=== PATIENT | female | born 1980 | race Caucasian/White ===

== ENCOUNTER 2017-10-22 17:11 | Emergency (ER) | payer SELFPAY | END 2017-10-22 18:58 | disposition left against medical advice (07) | LOC: ER 17:11 | DX: Z53.21 Procedure and treatment not carried out due to patient leaving prior to being seen by health care provider (principal) ==

== ENCOUNTER 2017-10-25 14:40 | Emergency (ER) | payer SELFPAY ==
[2017-10-25 14:56] VITALS: BP 159/92; TEMP 98.1; O2SAT 98
[2017-10-25] MEDS ORDERED: PROMETHAZINE HCL 25 MG TAB PO ONE (15:08)
--- NOTE | 2017-10-25 16:11 | CT ---
EXAM DESCRIPTION: Head: Computed Tomography. CLINICAL HISTORY: fall 3 d ago with new right periorbital bruising COMPARISON: CT scan of the orbits without IV contrast on the same visit. TECHNIQUE: Non-helical axial scans through the skull and brain, at 2.5 mm intervals, non-contrast. Coronal and sagittal 2.0 mm reconstructions. Total Exam DLP: 752.48 mGy-cm. This exam was performed according to our departmental dose-optimization program which includes automated exposure control, adjustment of the mA and/or kV according to patient size and/or use of iterative reconstruction technique; to reduce radiation dose to as low as reasonably achievable (ALARA). FINDINGS: No hemorrhage, no mass-effect, and no midline shift. Normal rico-white matter differentiation. No abnormal radiodense material in the brain parenchyma. Vascular calcifications not present; physiologic calcifications in the pineal gland and choroid plexus. No effacement or displacement of the ventricles, CSF spaces, or subdural spaces. No extra axial fluid collection or hemorrhage. No gross abnormalities of the bony calvarium, including some of the facial bones and periorbital structures. Included paranasal sinuses and mastoid air cells are well - aerated. IMPRESSION: 1. No hemorrhage, no mass effect, no midline shift. Normal CT scan of the head without IV contrast. Not all of the orbital structures were included on the scan. Please see report and examination CT orbits. 2. CT scans are insensitive for detecting small CVAs in the first 24 hours after onset. Evaluation of the brain stem is also limited. If symptoms persist, consider MRI scan of the brain with diffusion imaging. Electronically signed by: Cleve Gayle MD 10/25/2017 4:10 PM CDT
--- NOTE | 2017-10-25 16:22 | CT ---
EXAM DESCRIPTION: Orbits: Computed Tomography. CLINICAL HISTORY: fall 3 d ago with new right periorbital bruising COMPARISON: CT scan of the head without IV contrast. TECHNIQUE: Spiral, axial 2.5 mm scans through the orbits and maxillofacial bones without contrast. Coronal and sagittal 2.0 mm reconstructions. Total Exam DLP: 282.65 mGy-cm. This exam was performed according to our departmental CT dose-optimization program which includes automated exposure control, adjustment of the mA and/or kV according to patient size and/or use of iterative reconstruction technique; to reduce radiation dose to as low as reasonably achievable (ALARA). FINDINGS: No significant mucoperiosteal thickening or air-fluid levels in the paranasal sinuses. Tiny polyp or cyst in the anterior base of the left antrum. Moderate anterior left septal deviation and minimal posterior right septal deviation. Carmen bullosa in the right middle turbinate. Bilateral ostiomeatal units are patent. Nasal bones and anterior maxillary spine are intact. The merida of the orbits and the maxillary sinuses are intact. No intraorbital air. No orbital blowout fracture. Bilateral orbital globes symmetric and normal density. No significant perifrontal and periorbital soft tissue swelling minimal soft tissue swelling just above the anterior right zygoma. IMPRESSION: No periorbital or paranasal sinus fracture. No significant soft tissue injury. Carmen bullosa in the right middle turbinate. Moderate left anterior septal deviation. Electronically signed by: Cleve Gayle MD 10/25/2017 4:21 PM CDT
--- NOTE | 2017-10-25 16:29 | ED.PDOC ---
History of Present Illness - General Chief Complaint: Head Injury Stated Complaint: Headache after a fall 3 days ago Time Seen by Provider: 10/25/17 14:49 Source: patient Exam Limitations: no limitations - History of Present Illness Initial Comments: the patient is a 37-year-old female presenting to the emergency room after having fallen 3 days ago while pushing a dumpster. The patient fell and hit the right side of her head and she does have some bruising over the right temporalis muscle and some periorbital hematomas well. There is no impingement of extraocular movements and vision is apparently normal. She did not pass out at that time. She has had some dizziness as well as phonophobia and photophobia since that time. She does have a headache. The symptoms have persisted and not gotten better so she showed appear to the emergency room. No other injuries. Severity: moderate Improving Factors: nothing Worsening Factors: nothing Associated Symptoms: malaise, nausea/vomiting Allergies/Adverse Reactions: Allergies Amoxicillin Allergy (Verified 10/25/17 14:59) Rash Cephalexin [From Keflex] Allergy (Verified 10/25/17 14:59) Rash Penicillins Allergy (Verified 10/25/17 14:59) Rash Homatropine [From Hydrocodone Compound] Adverse Reaction (Verified 10/25/17 14: 59) Other Causes severe itching Hydrocodone [From Hydrocodone Compound] Adverse Reaction (Verified 10/25/17 14: 59) Other Causes severe itching Home Medications: Ambulatory Orders Ondansetron [Zofran Odt] 4 mg PO Q4H PRN #10 tab 10/25/17 Review of Systems - Review of Systems Constitutional: States: malaise EENTM: States: no symptoms reported Respiratory: States: no symptoms reported Cardiology: States: no symptoms reported Gastrointestinal/Abdominal: States: no symptoms reported Genitourinary: States: no symptoms reported Musculoskeletal: States: no symptoms reported Skin: States: no symptoms reported Neurological: States: headache Endocrine: States: no symptoms reported All other Systems: No Change from Baseline Past Medical History (General) - Patient Medical History Hx Stroke: No Hx Congestive Heart Failure: No Hx Diabetes: No Surgical History: no surgical history - Vaccination History Hx Influenza Vaccination: No Hx Pneumococcal Vaccination: No - Social History Hx Tobacco Use: Yes - Female History Patient is a Female of Child Bearing Age (10 -59 yrs old): Yes Patient : No Family Medical History - Family History Mother Family History: No Known Living Status: Still Living Hx Family;Other: Grandmother, paternal and maternal - lung cancer Physical Exam - Physical Exam General Appearance: Alert, No apparent distress Eye Exam: bilateral normal Ears, Nose, Throat: hearing grossly normal, other - she does have bruising over the right temporalis muscle. She does have a periorbital hematoma on the right. No significant laceration. No bony crepitus. Right tympanic membrane is clear. Extraocular movements are preserved. 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 The patient does seem to be having symptoms of a concussion as well as a right mild periorbital hematoma. No evidence of any intracranial hemorrhage or orbital fracture on CT scans. She does need to keep herself well hydrated and avoid overheating or overexerting herself for now. The dizziness may last some time. Ibuprofen and Tylenol can be used as needed to control some of the headache. She is to follow up with her primary care doctor later in the week for reevaluation. ER warnings were given. - Results/Orders Results/Orders: CT scan of the head and orbits show no evidence of any acute pathology. She does have chronic changes of the nasal passages. Departure - Departure Clinical Impression: Concussion without loss of consciousness Qualifiers: Encounter type: initial encounter Qualified Code(s): S06.0X0A - Concussion without loss of consciousness, initial encounter Disposition: Discharge to Home or Self Care Condition: Fair Departure Forms: ED Discharge - Pt. Copy, Patient Portal Self Enrollment Instructions: DI for Concussion Diet: regular diet Activity: increase activity as tolerated Prescriptions: Ondansetron [Zofran Odt] 4 mg PO Q4H PRN #10 tab PRN Reason: Vomiting Home Medications: Ambulatory Orders Ondansetron [Zofran Odt] 4 mg PO Q4H PRN #10 tab 10/25/17 Additional Instructions: the patient's a 37-year-old female presenting to the emergency room after head trauma 3 days ago. The patient does seem to be having symptoms of a concussion as well as a right mild periorbital hematoma. No evidence of any intracranial hemorrhage or orbital fracture on CT scans. She does need to keep herself well hydrated and avoid overheating or overexerting herself for now. The dizziness may last some time. Ibuprofen and Tylenol can be used as needed to control some of the headache. She is to follow up with her primary care doctor later in the week for reevaluation. ER warnings were given.
== END 2017-10-25 16:38 | disposition home or self-care (01) ==
LOC: ER 14:40
DX: S06.0X0A Concussion without loss of consciousness, initial encounter (principal); Z87.891 Personal history of nicotine dependence; W01.198A Fall on same level from slipping, tripping and stumbling with subsequent striking against other object, initial encounter; Y92.9 Unspecified place or not applicable
CPT/HCPCS: 70450; 70480; Q0169